=== PATIENT | male | born 1955 | race African-American/Black ===

== ENCOUNTER 2020-09-27 08:30 | Emergency (ER) | payer MEDICARE, MEDICAID ==
[~2020-09-27] VITALS: Ht 188 cm; Wt 77.0 kg
[2020-09-27] MEDS ORDERED: MORPHINE SULFATE 4 MG/ML CPJ (NOT FOR IM USE) IV STA (08:37)
[2020-09-27 11:21] LABS: BASOPHILS % 0.5 % (0.0-2.0); EOSINOPHILS % 0.7 % (0.0-5.0); HEMATOCRIT. 36.4 % (42.0-52.0); LYMPHOCYTES % 9.6 % (20.0-50.0); MEAN CORPUSCULAR HEMOGLOBIN 27.1 pg (28.0-32.0); MEAN CORPUSCULAR VOLUME 82.2 fL (80.0-94.0); MONOCYTES % 7.9 % (2.0-8.0); NEUTROPHILS % 81.3 % (40.0-76.0); PLATELET 176 x1000/uL (130-400); RED BLOOD CELL COUNT 4.43 mill/uL (4.7-6.1); RED CELL DISTRIBUTION WIDTH 18.6 % (11.6-14.6)
[2020-09-27 11:28] LABS: CHLORIDE 103 mEq/L (98-107)
[2020-09-27 11:32] LABS: INR 1.1; PROTHROMBIN TIME 11.2 sec (9.6-11.0)
[2020-09-27 12:00] VITALS: BP 139/81
[2020-09-27] MEDS ORDERED: ONDANSETRON 4MG ODT PO STA (12:35)
[2020-09-27] MEDS ORDERED: MAGNESIUM/ALUMINUM HYDROXIDE/SIMETHICONE 30ML UDC PO STA (12:35)
[2020-09-27] MEDS ORDERED: DICYCLOMINE 10 MG/5 ML ORAL SYR PO STA (12:35)
[2020-09-27] MEDS ORDERED: VISCOUS LIDOCAINE 2% 15 ML UDC PO STA (12:35)
[2020-09-27 13:53] LABS: CLARITY URINE CLOUDY (CLEAR); COLOR URINE YELLOW (YELLOW); KETONES URINE 2+ (NEGATIVE); LEUKOCYTE ESTERASE URINE NEGATIVE (NEGATIVE); NITRITE URINE NEGATIVE (NEGATIVE); OCCULT BLOOD URINE NEGATIVE (NEGATIVE); PROTEIN URINE NEGATIVE (NEGATIVE); SPECIFIC GRAVITY URINE 1.017 (1.005-1.030)
== END 2020-09-27 13:40 | disposition left against medical advice (07) ==
LOC: ER 09:06
DX: K81.0 Acute cholecystitis (principal); I10 Essential (primary) hypertension; I25.2 Old myocardial infarction; E78.00 Pure hypercholesterolemia, unspecified
CPT/HCPCS: 36415; 76705; 80053; 81003; 85025; 93005; 99285